=== PATIENT | female | born 1960 | race Hispanic/Latino ===

== ENCOUNTER 2025-08-28 09:30 | Emergency (ER) | payer OTHER, SELFPAY ==
[~2025-08-28] VITALS: Ht 165.1 cm; Wt 65.5 kg
[2025-08-28 13:42] LABS: PLATELET COUNT, AUTOMATED 133 10^3/uL (150-450)
[2025-08-28 14:05] LABS: LYMPHOCYTES 94 % (16-44); NEUTROPHILS 6 % (28-66); PLATELET ESTIMATE DECREASED (NORMAL)
[2025-08-28 14:06] LABS: CALCIUM LEVEL 8.4 MG/DL (8.3-10.6); CARBON DIOXIDE LEVEL 28.0 MMOL/L (20-31); CHLORIDE LEVEL 107.0 MMOL/L (98-107); CREATININE FOR GFR 0.79 MG/DL (0.55-1.30); GLOMERULAR FILTRATION RATE 84.0 (>45); POTASSIUM SERUM 4.2 MMOL/L (3.5-5.1); SODIUM LEVEL 142.0 MMOL/L (136-145)
[2025-08-28 15:30] VITALS: BP 102/57; TEMP 97.5; O2SAT 97
== END 2025-08-28 15:44 | disposition home or self-care (01) ==
LOC: M ED 09:30
DX: J06.9 Acute upper respiratory infection, unspecified (principal); C91.90 Lymphoid leukemia, unspecified not having achieved remission

== ENCOUNTER → 2025-10-14 | Outpatient (CLI) | payer OTHER ==
[~2025-10-14] MED LIST: CENT1TAB PO; ISOVUE-370 76% 100 ML VIAL ONE
== END ==
LOC: M PLAIMG 07:39
PROVIDERS: ATTEND Internal Medicine Medical Oncology
DX: C91.10 Chronic lymphocytic leukemia of B-cell type not having achieved remission (principal)
CPT/HCPCS: 71260; 74177; Q9967

== ENCOUNTER → 2025-10-14 | Outpatient (CLI) | payer OTHER ==
[~2025-10-14] MED LIST changes: -ISOVUE-370 76% 100 ML VIAL ONE
== END ==
LOC: M WHC 07:41
PROVIDERS: ATTEND Internal Medicine Medical Oncology
DX: Z12.31 Encounter for screening mammogram for malignant neoplasm of breast (principal); R92.323 Mammographic fibroglandular density, bilateral breasts